=== PATIENT | male | born 1950 | race Caucasian/White ===

== ENCOUNTER → 2016-04-15 | Outpatient (CLI) | payer MEDICARE | LOC: RAD 14:06 | PROVIDERS: ATTEND Urology | DX: C67.2 Malignant neoplasm of lateral wall of bladder (principal); N13.30 Unspecified hydronephrosis | CPT/HCPCS: 74178 ==

== ENCOUNTER → 2016-07-08 | Outpatient (CLI) | payer MEDICARE | LOC: OD 09:16 | PROVIDERS: ATTEND Urology | DX: N40.0 Benign prostatic hyperplasia without lower urinary tract symptoms (principal) | CPT/HCPCS: 36415; 84153 ==

== ENCOUNTER → 2017-04-16 | Outpatient (CLI) | payer MEDICARE ==
--- NOTE | 2017-04-16 12:32 | RADIOLOGY REPORT (SQ) ---
EXAM DESCRIPTION: U/S RETROPERITON (RENAL/AORTA) COMPLETED DATE/TIME: 04/16/2017 11:41 am REASON FOR STUDY: N13.39 OTHER HYDRONEPHROSIS N13.39 OTHER HYDRONEPHROSIS COMPARISON: 2017 CT. TECHNIQUE: Dynamic and static grayscale images acquired of the kidneys and bladder and recorded on P ACS. Additional selected color Doppler and spectral images recorded. LIMITATIONS: None. FINDINGS: RIGHT KIDNEY: Normal size. Normal echogenicity. No solid or suspicious masses. No hydronep hrosis. No calcifications. LEFT KIDNEY: No mass or stones. Normal size. Relatively mild hydronephrosis. BLADDER: Region of the bladder not imaged. OTHER FINDINGS: No other significant finding. IMPRESSION: Mild left hydronephrosis. TECHNICAL DOCUMENTATION: JOB ID: [id number] [employer]- All Rights Reserved
== END ==
LOC: RAD 12:04
PROVIDERS: ATTEND Urology
DX: N13.39 Other hydronephrosis (principal)
CPT/HCPCS: 76770

== ENCOUNTER 2019-10-17 11:57 | Emergency (ER) | payer MEDICARE ==
[2019-10-17 12:33] LABS: ABSOLUTE EOSINOPHILS # (AUTO) 0.1 10^3/uL (0.0-0.6); ABSOLUTE LYMPHOCYTES (AUTO) 0.7 10^3/uL (0.5-4.7); ABSOLUTE NEUT (AUTO) 6.4 10^3/uL (1.7-8.2); BASOPHILS % (AUTO) 0.6 % (0-2); EOSINOPHILS % (AUTO) 0.8 % (0-6); HEMATOCRIT 30.9 % (37.9-51.0); HEMOGLOBIN 10.3 g/dL (13.5-17.0); LYMPHOCYTES % (AUTO) 8.5 % (13-45); MEAN CORPUSCULAR HEMOGLOBIN 29.4 pg (27.0-33.4); MEAN CORPUSCULAR HGB CONC 33.5 g/dL (32.0-36.0); MEAN CORPUSCULAR VOLUME 88 fl (80-97); MONOCYTES % (AUTO) 12.5 % (3-13); PLATELET COUNT 404 10^3/uL (150-450); RED BLOOD COUNT 3.51 10^6/uL (4.35-5.55); RED CELL DISTRIBUTION WIDTH 15.5 % (11.5-14.0); SEGMENTED NEUTROPHILS % (AUTO) 77.6 % (42-78); TOTAL CELLS COUNTED % (AUTO) 100 %; WHITE BLOOD COUNT 8.2 10^3/uL (4.0-10.5)
[2019-10-17 12:48] LABS: ALBUMIN 3.3 g/dL (3.5-5.0); ALKALINE PHOSPHATASE 136 U/L (38-126); ANION GAP 8 (5-19); ASPARTATE AMINO TRANSFERASE 24 U/L (17-59); BILIRUBIN,TOTAL 0.4 mg/dL (0.2-1.3); BLOOD UREA NITROGEN 9 mg/dL (7-20); CALCIUM 8.9 mg/dL (8.4-10.2); CARBON DIOXIDE 32 mmol/L (22-30); CHLORIDE 98 mmol/L (98-107); GLUCOSE 124 mg/dL (75-110); POTASSIUM 4.1 mmol/L (3.6-5.0); TOTAL PROTEIN 6.6 g/dL (6.3-8.2)
[2019-10-17] MEDS ORDERED: NORMAL SALINE 500 ML IV ONE (13:40)
[2019-10-17 13:57] LABS: AMORPHOUS SEDIMENT,URINE TRACE /HPF; APPEARANCE,URINE CLOUDY; BILIRUBIN,URINE NEGATIVE (NEGATIVE); COLOR,URINE YELLOW; GLUCOSE, URINE NEGATIVE (NEGATIVE); KETONES,URINE NEGATIVE (NEGATIVE); LEUKOCYTE ESTERASE,URINE NEGATIVE (NEGATIVE); NITRITE,URINE NEGATIVE (NEGATIVE); PROTEIN,URINE NEGATIVE (NEGATIVE); UROBILINOGEN,URINE NEGATIVE mg/dL (<2.0)
--- NOTE | 2019-10-17 15:06 | RADIOLOGY REPORT (SQ) ---
EXAM DESCRIPTION: ACUTE ABDOMEN SERIES IMAGES COMPLETED DATE/TIME: 10/17/2019 2:30 pm REASON FOR STUDY: constipation/nausea/s/p left upper lobectomy COMPARISON: None. NUMBER OF VIEWS: Three views. TECHNIQUE: Frontal chest, supine abdomen and upright/decubitus abdomen radiographic images acquired. LIMITATIONS: None. FINDINGS: CHEST: Postoperative changes of the left upper lobe are present. A left tube thoracostomy is present with the tip at the left lung apex. No definite residual pneumothorax. No large pleural effusion. FREE AIR: None. No abnormal gas collections. BOWEL GAS PATTERN: Nonobstructive pattern. No dilated loops or air fluid levels. CALCIFICATIONS: No suspicious calcifications. HARDWARE: Numerous surgical clips project over the right upper quadrant and over the right hemipelvis . SOFT TISSUES: No gross mass or suggestion of organomegaly. A tiny amount of subcutaneous emphysema i s noted over the left lateral chest wall. BONES: No acute fracture. No worrisome bone lesions. OTHER: No other significant finding. IMPRESSION: Postoperative changes of the left upper lung with an atypically directed left tube thora costomy. No definite residual pneumothorax. Nonobstructive bowel gas pattern. TECHNICAL DOCUMENTATION: JOB ID: [id number] [employer]- All Rights Reserved Reading location - IP/workstation name: [email or web address]
[2019-10-17 16:06] VITALS: BP 133/64
--- NOTE | 2019-10-17 17:13 | ER Document Report ---
Entered by BRAULIO MEADOWS SCRIBE 10/17/19 2317 Acting as scribe for:MAGGIE KNIGHT MD ED GI/ - General Chief Complaint: Nausea/Vomiting Stated Complaint: NAUSEA Time Seen by Provider: 10/17/19 12:42 Primary Care Provider: GENARO KAUR MD [NO LOCAL MD] - Follow up as needed Information source: Patient Notes: This 69 year old male patient presents to the emergency department today with constipation. Patient reports history of lung cancer and left upper lobectomy 09/23/19. Patient states he has a chest tube and was told by his Doctor it will be removed in a week. Patient states he was placed on Amoxicillin, not for an infection, but because he has had the chest tube for so long. Patient states the Amoxicillin made him nauseous, then vomit. Patient states he stopped taking the antibiotic and is now constipated. Patient states he took MiraLax yesterday and came to the ED today to check. TRAVEL OUTSIDE OF THE [place] IN LAST 30 DAYS: No - Related Data Allergies/Adverse Reactions: ibuprofen [From Advil] Allergy (Verified 10/17/19 12:14) naproxen sodium [From Aleve] Allergy (Verified 10/17/19 12:14) Past Medical History - General Information source: Patient - Social History Smoking Status: Former Smoker Cigarette use (# per day): No Family History: Arthritis, Malignancy, CAD, CVA, Hyperlipidemia, Hypertension, Thyroid Disfunction Patient has homicidal ideation: No - Past Medical History Cardiac Medical History: Reports: Hx Coronary Artery Disease, Hx Hyper cholesterolemia, Hx Hypertension Pulmonary Medical History: Reports: Hx Bronchitis, Hx COPD, Hx Sleep Apnea Malignancy Medical History: Reports Hx Lung Cancer GI Medical History: Reports: Hx Colonoscopy Past Surgical History: Reports: Hx Cholecystectomy, Hx Inguinal Hernia, Other - Left upper lobectomy - Immunizations Immunizations up to date: Yes Hx Diphtheria, Pertussis, Tetanus Vaccination: Yes - 2011 Hx Pneumococcal Vaccination: 02/24/98 Review of Systems - Review of Systems Constitutional: No symptoms reported EENT: No symptoms reported Cardiovascular: No symptoms reported Respiratory: See HPI Gastrointestinal: See HPI, Nausea, Vomiting, Constipation Genitourinary: No symptoms reported Male Genitourinary: No symptoms reported Musculoskeletal: No symptoms reported Skin: No symptoms reported Hematologic/Lymphatic: No symptoms reported Neurological/Psychological: No symptoms reported -: Yes All other systems reviewed and negative Physical Exam - Vital signs Vitals: Pulse Ox 100 10/17/19 11:59 - General General appearance: Appears well, Alert - HEENT Head: Normocephalic, Atraumatic Eyes: Normal Pupils: PERRL - Respiratory Respiratory status: No respiratory distress Chest status: Nontender Breath sounds: Normal Notes: Left chest tube draining into receptacle. Dressing around chest tube is clean. - Cardiovascular Rhythm: Regular Heart sounds: Normal auscultation, S1 appreciated, S2 appreciated Murmur: No - Abdominal Inspection: Normal, Other - Soft Distension: No distension Bowel sounds: Normal Tenderness: Nontender - Extremities General upper extremity: Normal inspection. No: Edema General lower extremity: Normal inspection. No: Edema - Neurological Neuro grossly intact: Yes Cognition: Normal Orientation: AAOx4 - Psychological Associated symptoms: Normal affect, Normal mood - Skin Skin Temperature: Warm Skin Moisture: Dry Skin Color: Normal Course - Re-evaluation Re-evalutation: 10/17/19 17:09 Patient resting comfortably not showing any signs of distress at this time. patient is hemodynamically stable with sats of 100% no tachycardia normal sinus rhythm on the monitor and afebrile. Patient presented with nausea vomiting and also has had constipation due to pain medication she has been recently taking. Patient took some MiraLAX but in the last 24 hours and is now having bowel movements and feels better. Patient is status post left upper lobe lobectomy due to cancer done on September 22 and has progressed well up until this time. Patient still has a chest tube drainage in place on the left side of his chest not showing much drainage at all in the receptacle. Patient's abdomen is soft nontender and patient has not vomited while in the ED. Acute abdominal series shows prior surgery with no pneumothorax chest tube in place no infiltrate noted. Abdominal series shows no obstruction no abnormal bowel gas pattern and no acute process. No free air. Advised patient to follow-up with his cardiothoracic surgeon and continue his usual medications that he is on patient has medications to take for pain for constipation and for nausea. - Vital Signs Vital signs: Temp Pulse Resp BP Pulse Ox 98.0 F 17 133/64 H 100 10/17/19 15:31 10/17/19 15:31 10/17/19 15:31 10/17/19 15:31 - Laboratory Result Diagrams: 10/17/19 12:05 10/17/19 12:05 Laboratory results interpreted by me: 10/17/19 10/17/19 10/17/19 12:05 12:05 12:05 RBC 3.51 L Hgb 10.3 L Hct 30.9 L RDW 15.5 H Lymph % (Auto) 8.5 L Carbon Dioxide 32 H Glucose 124 H Alkaline Phosphatase 136 H Albumin 3.3 L Acetaminophen < 10 L 10/17/19 17:12 Laboratories within normal limits no acute process - Diagnostic Test Radiology reviewed: Image reviewed, Reports reviewed Radiology results interpreted by me: 10/17/19 17:12 Acute abdominal series shows no free air no acute process in the abdomen not showing any signs of obstruction. Chest shows chest tube in place in the left hemithorax with no pneumothorax at this time. Discharge - Discharge Clinical Impression: Constipation, Nausea, Lung cancer Condition: Stable Disposition: HOME, SELF-CARE Additional Instructions: Constipation Constipation is a common problem. It is especially likely as you get older. Constipation is a common cause of abdominal pain, but sometimes causes no symptoms at all. Causes of constipation include certain medications, dehydration, diets, inactivity, and low-fiber intake. Rarely, it can be a symptom of underlying disease. The physician has evaluated you for this. Avoid constipation by eating a diet high in fiber, fruits, and vegetables. Drink plenty of liquids. Get regular exercise. If possible, avoid constipating medicines like narcotic pain medication. Some vitamin tablets can cause constipation. Stool softeners may be needed for difficult cases. An excellent stool softener is Konsyl which is available at [employer], and [employer]. Just add a teaspoon to a glass of pineapple or orange juice daily or twice a day if needed. Laxatives are useful for occasional constipation. You should use them only when necessary. Too-frequent use can make your bowels dependent on them. Some over the counter laxatives available without prescription are: Milk of Magnesia, 1-2 tablespoons twice a day Dulcolax, 5 mg pill or 10 mg suppository. Citrate of Magnesia, 4-5 ounces a day for a day or two For acute constipation, Fleet's Enemas and Dulcolax suppositories are helpful. Chronic, group home use of laxatives or enemas is not a good idea. Your bowel may become dependant on them. You do not need to have a bowel movement every day. Many people do fine with a bowel movement every three or four days. You should call your doctor or return for re-evaluation if you pass blood in the stool, or if you develop fever or increasing abdominal pain. As discussed you have medications to take for constipation and you have already began MiraLAX which seems to be allowing you to have bowel movements at this time. You also mentioned that you have medications to take for your nausea so therefore there are no new prescriptions written today continue to follow-up with your thoracic surgeon who did place you on an antibiotic which you found a reason to stop please notify your surgeon of your decision. We did not find any problems about your recent surgery today chest x-ray abdomen x-rays does not show any obstruction or there is no infiltrate or any pneumonia or collapsed lung noted on the chest x-ray today. Continue your same other medications as you are doing. Referrals: GENARO KAUR MD [NO LOCAL MD] - Follow up as needed I personally performed the services described in the documentation, reviewed and edited the documentation which was dictated to the scribe in my presence, and it accurately records my words and actions.
== END 2019-10-17 16:00 | disposition home or self-care (01) ==
LOC: ER 11:57
DX: K59.03 Drug induced constipation (principal); T39.95XA Adverse effect of unspecified nonopioid analgesic, antipyretic and antirheumatic, initial encounter; R11.2 Nausea with vomiting, unspecified; T36.0X5A Adverse effect of penicillins, initial encounter; C34.90 Malignant neoplasm of unspecified part of unspecified bronchus or lung; Z90.2 Acquired absence of lung [part of]; Z87.891 Personal history of nicotine dependence
CPT/HCPCS: 99285; 96360; 36415; 80307; 85025; 80053; 81001; 74022; J7040